=== PATIENT | male | born 1950 | race American Indian/Alaskan Native ===

== ENCOUNTER 2021-07-01 15:56 | Inpatient (IN) | payer OTHER ==
[2021-07-01] MEDS ORDERED: ACETAMINOPHEN 500 MG TAB PO ONE (17:17)
[2021-07-01] MEDS ORDERED: SODIUM CHLORIDE 0.9% 500 ML 500 ML IV ONE (17:17)
[2021-07-01 17:50] LABS: Basophils % (Auto) 0.5 % (0.0-1.8); Eosinophils # (Auto) 0.2 K/mm3 (0.0-0.4); Eosinophils % (Auto) 3.9 % (0.0-4.3); Hematocrit 23.4 % (35.5-45.6); Hemoglobin 7.4 gm/dl (11.8-15.2); Lymphocytes # (Auto) 0.3 K/mm3 (1.2-5.4); Lymphocytes % (Auto) 4.8 % (13.4-35.0); Mean Corpuscular HGB Conc 32 % (32-34); Mean Corpuscular Volume 93 fl (84-94); Monocytes # (Auto) 0.7 K/mm3 (0.0-0.8); Monocytes % (Auto) 10.5 % (0.0-7.3); Platelet Count 126 K/mm3 (140-440); Red Blood Count 2.51 M/mm3 (3.65-5.03); Red Cell Distribution Width 20.9 % (13.2-15.2)
--- NOTE | 2021-07-01 18:03 | XRay Report ---
CHEST 1 VIEW 07/01/2021 4:55 PM INDICATION / CLINICAL INFORMATION: Back Pain. COMPARISON: None available. FINDINGS: SUPPORT DEVICES: None. HEART / MEDIASTINUM: Moderate cardiomegaly. LUNGS / PLEURA: Moderate bilateral parenchymal disease with small left pleural effusion. No pneumotho rax. ADDITIONAL FINDINGS: No significant additional findings. IMPRESSION: 1. Probable bilateral pneumonia with small left pleural effusion Signer Name: Andrew Galeas MD Signed: 07/01/2021 5:59 PM Workstation Name: [id number]
--- NOTE | 2021-07-01 18:04 | XRay Report ---
LUMBAR SPINE 1 AP VIEWS INDICATION / CLINICAL INFORMATION: Back Pain. COMPARISON: None available. FINDINGS: VERTEBRAE: No fracture. No significant malalignment. DISC SPACES:No significant abnormality. FACET JOINTS:No significant abnormality. ADDITIONAL FINDINGS: Right double-J ureteral stent area and embolization coils left upper quadrant. M oderate vascular calcifications nonaneurysmal aorta. IMPRESSION: 1. No significant abnormality. Lateral x-ray not performed secondary to patient inability Signer Name: Andrew Galeas MD Signed: 07/01/2021 6:00 PM Workstation Name: [id number]
[2021-07-01 18:12] LABS: Albumin 2.7 g/dL (3.9-5); Calcium 8.6 mg/dL (8.4-10.2)
[2021-07-01] MEDS ORDERED: cefTRIAXone/NS 1 GM/50 ML 1 GM/50 ML BAG IV ONE (18:16)
--- NOTE | 2021-07-01 18:57 | Emergency Department Report ---
ED Back Pain/Injury HPI - General Chief Complaint: Back Pain/Injury Stated Complaint: BACK PAIN Time Seen by Provider: 07/01/21 17:13 Source: patient Limitations: Physical Limitation - History of Present Illness MD Complaint: back pain -: Gradual, days(s) Similar Symptoms Previously: Yes Place: home Radiation: none Severity scale (0 -10): 5 Quality: dull Consistency: constant Worsens With: none - Related Data Allergies Allergy/AdvReac Type Severity Reaction Status Date / Time No Known Allergies Allergy Unverified 07/01/21 16:20 ED Review of Systems ROS: Stated complaint: BACK PAIN Other details as noted in HPI Constitutional: denies: chills, fever Eyes: denies: eye pain, eye discharge, vision change ENT: denies: ear pain, throat pain Respiratory: denies: cough, shortness of breath, wheezing Cardiovascular: denies: chest pain, palpitations Endocrine: no symptoms reported Gastrointestinal: denies: abdominal pain, nausea, diarrhea Genitourinary: denies: urgency, dysuria Musculoskeletal: denies: back pain, joint swelling, arthralgia Skin: denies: rash, lesions Neurological: denies: headache, weakness, paresthesias Psychiatric: denies: anxiety, depression Hematological/Lymphatic: denies: easy bleeding, easy bruising ED Past Medical Hx - Past Medical History Previous Medical History?: Yes Hx CVA: Yes Hx Heart Attack/AMI: Yes Hx Congestive Heart Failure: Yes Hx Renal Disease: Yes - Surgical History Past Surgical History?: Yes Hx Coronary Stent: Yes - Social History Smoking Status: Former Smoker ED Physical Exam - General Limitations: Physical Limitation General appearance: alert, in distress, other (looks sick , disheveld ) - Head Head exam: Present: atraumatic, normocephalic - ENT ENT exam: Present: mucous membranes moist - Neck Neck exam: Present: normal inspection - Respiratory Respiratory exam: Present: normal lung sounds bilaterally, rales - Cardiovascular Cardiovascular Exam: Present: normal rhythm, bradycardia. Absent: systolic murmur, diastolic murmur, rubs, gallop - GI/Abdominal GI/Abdominal exam: Present: soft, normal bowel sounds - Rectal Rectal exam: Present: deferred - Extremities Exam Extremities exam: Present: normal inspection - Back Exam Back exam: Present: tenderness - Neurological Exam Neurological exam: Present: alert, oriented X3 - Psychiatric Psychiatric exam: Present: normal affect, normal mood - Skin Skin exam: Present: warm, dry, intact, normal color. Absent: rash ED Course Vital Signs 07/01/21 07/01/21 07/01/21 16:03 16:23 16:30 Pulse Rate 55 L 54 L Respiratory 20 12 13 Rate Blood Pressure Blood Pressure 100/64 [Right] O2 Sat by Pulse 99 Oximetry 07/01/21 16:46 Pulse Rate 54 L Respiratory 24 Rate Blood Pressure 99/57 Blood Pressure [Right] O2 Sat by Pulse 100 Oximetry ED Medical Decision Making - Lab Data Result diagrams: 07/01/21 17:25 07/01/21 17:25 Critical care attestation.: If time is entered above; I have spent that time in minutes in the direct care of this critically ill patient, excluding procedure time. ED Disposition Clinical Impression: Pneumonia, CRF (chronic renal failure), Hypotension Disposition: 09 ADMITTED INPATIENT Is pt being admited?: Yes Does the pt Need Aspirin: No Condition: Stable Instructions: Bacterial Pneumonia (ED) Referrals: PRIMARY CARE, [Primary Care Provider] - 3-5 Days
--- NOTE | 2021-07-01 21:41 | History and Physical Report ---
History of Present Illness Date of examination: 07/01/21 Date of admission: 07/01/2022 Chief complaint: Shortness of breath for 1 day History of present illness: 71-year-old with history of end-stage renal disease, congestive heart failure, coronary artery disease, CVA presents with shortness of breath and low back pain. No fever. Patient was in the emergency room. No increased temperature. Feels weak. Patient's vaccination status is not clear. 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 Patient apparently goes for dialysis to [facility] dialysis clinic and he is not sure of the name. - Past Medical History --Previous Medical History?: Yes --CVA: Yes --Heart Attack/AMI: Yes --Congestive Heart Failure: Yes --Renal Disease: Yes - Surgical History --Past Surgical History?: Yes --Coronary Stent: Yes - Social History --Smoking Status: Former Smoker -Family history -- Htn Review of Systems ROS: Stated complaint: BACK PAIN Other details as noted in HPI Constitutional: denies: chills, fever Eyes: denies: eye pain, eye discharge, vision change ENT: denies: ear pain, throat pain Respiratory: denies: cough, shortness of breath, wheezing Cardiovascular: denies: chest pain, palpitations Endocrine: no symptoms reported Gastrointestinal: denies: abdominal pain, nausea, diarrhea Genitourinary: denies: urgency, dysuria Musculoskeletal: denies: back pain, joint swelling, arthralgia Skin: denies: rash, lesions Neurological: denies: headache, weakness, paresthesias Psychiatric: denies: anxiety, depression Hematological/Lymphatic: denies: easy bleeding, easy bruising Medications and Allergies Allergies Allergy/AdvReac Type Severity Reaction Status Date / Time No Known Allergies Allergy Unverified 07/01/21 16:20 Exam - Constitutional Vitals: Temp Pulse Resp BP Pulse Ox 54 L 19 98/54 100 07/01/21 19:15 07/01/21 19:15 07/01/21 19:15 07/01/21 19:15 General appearance: Present: mild distress, well-nourished - EENT Eyes: Present: PERRL ENT: hearing intact, clear oral mucosa - Neck Neck: Present: supple, normal ROM - Respiratory Respiratory effort: normal Respiratory: bilateral: CTA - Cardiovascular Heart rate: 78 Rhythm: regular Heart Sounds: Present: S1 & S2. Absent: rub, click - Extremities Extremities: pulses symmetrical, No edema Peripheral Pulses: within normal limits - Abdominal General gastrointestinal: Present: soft, non-tender, non-distended, normal bowel sounds Male genitourinary: Present: normal - Integumentary Integumentary: Present: clear, warm, dry - Musculoskeletal Musculoskeletal: gait normal, strength equal bilaterally - Psychiatric Psychiatric: appropriate mood/affect, intact judgment & insight - Neurologic Neurologic: CNII-XII intact, moves all extremities Results - Labs CBC & Chem 7: 07/02/21 04:24 07/02/21 04:24 Labs: Laboratory Last Values WBC 6.3 K/mm3 (4.5-11.0) 07/01/21 17:25 RBC 2.51 M/mm3 (3.65-5.03) L 07/01/21 17:25 Hgb 7.4 gm/dl (11.8-15.2) L 07/01/21 17:25 Hct 23.4 % (35.5-45.6) L 07/01/21 17:25 MCV 93 fl (84-94) 07/01/21 17:25 MCH 30 pg (28-32) 07/01/21 17:25 MCHC 32 % (32-34) 07/01/21 17:25 RDW 20.9 % (13.2-15.2) H 07/01/21 17:25 Plt Count 126 K/mm3 (140-440) L 07/01/21 17:25 Lymph % (Auto) 4.8 % (13.4-35.0) L 07/01/21 17:25 [place] % (Auto) 10.5 % (0.0-7.3) H 07/01/21 17:25 Eos % (Auto) 3.9 % (0.0-4.3) 07/01/21 17:25 Baso % (Auto) 0.5 % (0.0-1.8) 07/01/21 17:25 Lymph # (Auto) 0.3 K/mm3 (1.2-5.4) L 07/01/21 17:25 [place] # (Auto) 0.7 K/mm3 (0.0-0.8) 07/01/21 17:25 Eos # (Auto) 0.2 K/mm3 (0.0-0.4) 07/01/21 17:25 Baso # (Auto) 0.0 K/mm3 (0.0-0.1) 07/01/21 17:25 Seg Neutrophils % 80.3 % (40.0-70.0) H 07/01/21 17:25 Seg Neutrophils # 5.1 K/mm3 (1.8-7.7) 07/01/21 17:25 Sodium 137 mmol/L (137-145) 07/01/21 17:25 Potassium 3.6 mmol/L (3.6-5.0) 07/01/21 17:25 Chloride 96.7 mmol/L (98-107) L 07/01/21 17:25 Carbon Dioxide 26 mmol/L (22-30) 07/01/21 17:25 Anion Gap 18 mmol/L 07/01/21 17:25 BUN 40 mg/dL (9-20) H 07/01/21 17:25 Creatinine 4.8 mg/dL (0.8-1.3) H 07/01/21 17:25 Estimated GFR 15 ml/min 07/01/21 17:25 BUN/Creatinine Ratio 8 % 07/01/21 17:25 Glucose 88 mg/dL (75-100) 07/01/21 17:25 Lactic Acid 1.40 mmol/L (0.7-2.0) 07/01/21 18:34 Calcium 8.6 mg/dL (8.4-10.2) 07/01/21 17:25 Total Bilirubin 1.10 mg/dL (0.1-1.2) 07/01/21 17:25 AST 34 units/L (5-40) 07/01/21 17:25 ALT 32 units/L (7-56) 07/01/21 17:25 Alkaline Phosphatase 106 units/L (35-129) 07/01/21 17:25 C-Reactive Protein 16.00 mg/dL (0.00-1.30) H 07/01/21 17:25 Total Protein 6.7 g/dL (6.3-8.2) 07/01/21 17:25 Albumin 2.7 g/dL (3.9-5) L 07/01/21 17:25 Albumin/Globulin Ratio 0.7 % 07/01/21 17:25 Short CBC 07/01/21 07/02/21 Range/Units 17:25 04:24 WBC 6.3 6.5 (4.5-11.0) K/mm3 Hgb 7.4 L 7.8 L (11.8-15.2) gm/dl Hct 23.4 L 25.0 L (35.5-45.6) % Plt Count 126 L 142 (140-440) K/mm3 BMP 07/01/21 07/02/21 17:25 04:24 Sodium 137 139 Potassium 3.6 4.8 D Chloride 96.7 L 98.3 Carbon Dioxide 26 18 L D BUN 40 H 43 H Creatinine 4.8 H 5.1 H Glucose 88 148 H Calcium 8.6 8.4 Liver Function 07/01/21 07/02/21 Range/Units 17:25 04:24 Total Bilirubin 1.10 1.10 (0.1-1.2) mg/dL AST 34 50 H (5-40) units/L ALT 32 32 (7-56) units/L Alkaline Phosphatase 106 123 (35-129) units/L Albumin 2.7 L 2.7 L (3.9-5) g/dL - Imaging and Cardiology Chest x-ray: report reviewed Imaging and Cardiology: Chest x-ray Probable bilateral pneumonia with small left pleural effusion Lumbar spine x-ray No significant abnormality. Lateral x-ray not performed secondary to patient's inability Assessment and Plan Advance Directives: Yes (Full code) VTE prophylaxis?: Chemical Plan of care discussed with patient/family: Yes - Patient Problems (1) SIRS (systemic inflammatory response syndrome) Current Visit: Yes Status: Acute Plan to address problem: All inflammatory markers are elevated including CRP of 16 D-dimer of 4320 LDH of 276. (2) Acute respiratory failure with hypoxia Current Visit: Yes Status: Acute Plan to address problem: Oxygen supplementation as necessary Rule out Covid (3) Bilateral pneumonia Current Visit: Yes Status: Acute Plan to address problem: Treat as community-acquired pneumonia Patient initiated on IV antibiotics in the form of azithromycin and Rocephin Also IV Decadron (4) Person under investigation for COVID-19 Current Visit: Yes Status: Acute Plan to address problem: Coronavirus PCR in a.m. (5) Hypotension Current Visit: Yes Status: Acute Qualifiers: Hypotension type: unspecified hypotension type Qualified Code(s): I95.9 - Hypotension, unspecified Plan to address problem: Patient being given about 500 cc of normal saline (6) End-stage renal disease needing dialysis Current Visit: Yes Status: Chronic Plan to address problem: Nephrology consulted Patient is a bit hypotensive (7) Malnutrition Current Visit: Yes Status: Chronic Qualifiers: Protein-calorie malnutrition severity: moderate Plan to address problem: Moderate Dietary supplements requested (8) DVT prophylaxis Current Visit: Yes Status: Acute Plan to address problem: On anticoagulation GI prophylaxis (9) Advance care planning Current Visit: Yes Status: Acute Plan to address problem: Disease education conducted, care plan discussed, diagnosis discussed, prognosis discussed. Patient is full code. Patient acknowledges understanding and a greement of the care plan. +30 minutes.
[2021-07-01] MEDS ORDERED: ONDANSETRON 4 MG/2 ML INJ IV PRN (22:07)
[2021-07-01] MEDS ORDERED: ACETAMINOPHEN 325 MG TAB PO PRN (22:07)
[2021-07-01] MEDS ORDERED: oxyCODONE /ACETAMINOPHEN 5-325MG TAB PO PRN (22:11)
[2021-07-01] MEDS ORDERED: METOCLOPRAMIDE 10 MG/2 ML INJ IV PRN (22:11)
[2021-07-01] MEDS ORDERED: SODIUM CHLORIDE 0.9% 1000 ML 1,000 ML IV SCH (22:15)
[2021-07-01] MEDS: HEPARIN 5,000 UNIT/1 ML VIAL SUB-Q SCH (22:47)
[2021-07-01] MEDS ORDERED: cefTRIAXone/NS 1 GM/50 ML 1 GM/50 ML BAG IV SCH (23:00)
[2021-07-01] MEDS ORDERED: AZITHROMYCIN/NS 500 MG/250 ML 500 MG/250 ML BAG IV SCH (23:00)
[2021-07-01] MEDS: dexAMETHasone 4 MG/ML VIAL IV SCH (23:24)
[2021-07-01] MEDS: FAMOTIDINE 10 MG TAB PO SCH (23:35)
[2021-07-02 01:47] LABS: C-Reactive Protein 16.9 mg/dL (0.00-1.30)
[2021-07-02 05:01] LABS: Hemoglobin 7.8 gm/dl (11.8-15.2); Mean Corpuscular HGB Conc 31 % (32-34); Mean Corpuscular Volume 95 fl (84-94); Platelet Count 142 K/mm3 (140-440); Red Blood Count 2.64 M/mm3 (3.65-5.03)
[2021-07-02 05:08] LABS: Red Cell Distribution Width 21.1 % (13.2-15.2)
[2021-07-02 05:22] LABS: Albumin 2.7 g/dL (3.9-5); Calcium 8.4 mg/dL (8.4-10.2)
[2021-07-02 06:18] LABS: Anisocytosis 1+; Eosinophils % (Manual) 0 % (0.0-4.3); Total Cells Counted 100
[2021-07-02 06:19] LABS: Ovalocytes 1+; Poikilocytosis 1+; Schistocytes Few
[2021-07-02 06:20] LABS: Platelet Estimate Consistent w Auto
--- NOTE | 2021-07-02 08:37 | Progress Note ---
Assessment and Plan Assessment and plan: History of present illness: History obtained from his as patient is dysp neic and drowsy and unable to provide detailed history. 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 He was ambulatory up until experiencing back pain around 2020 and was admitted to [facility] in mid April 2021 and discharged in mid May 2021. During the hospital stay, he was treated for prolonged nosebleeds and cardiac stenting in lieu of CABG which he was too weak to undergo. 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 It appears that he was treated with vancomycin q. 3 days and was discharged last week. He was to get 1 week more of vancomycin at dialysis center to complete a 6-week course. In ED, no increased temperature. Feels weak. Appears dyspneic. 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 Patient apparently goes for dialysis to [facility] dialysis clinic and he is not sure of the name. Assessment: Just discharged from [facility] after a 5-week stay preceded by hospitalization at [place] for 1 month Acute on chronic hypoxic respiratory failure History of COPD on 3 and half liters of O2 at home History of COVID-19 pneumonia early in the pandemic Bilateral diffuse opacities on chest x-ray, acute versus chronic Volume overload versus new pneumonia versus scarring from previous COVID-19 pneumonia Patient needed BiPAP at [facility] Elevated D-dimer and CRP Vaccination x2 for COVID-19 but refused booster PCR is pending Encephalopathy Acute versus acute on chronic, unclear if he has some dementia Etiology could be sepsis, hypotension, drug-induced, hypoxia etc. Hypotension, better today Could be from possible sepsis Afebrile, normal WBC and normal procalcitonin Await blood cultures COVID-19 PCR pending Permacath infection in 05/2021 Reported seeding of infection to spine and endocarditis Reportedly completed 5/6 weeks of vancomycin, treated at [facility] ESRD on hemodialysis CAD Cardiac stents in 06/01 at [place] in lieu of CABG since a poor surgical candidate Severe arthritis in the hands with gross deformities, likely RA DNR, as per However patient wants to revoke DNR status to make full code Plan: Obtain medical records from [facility] Obtain home medication list Resume vancomycin, check trough level, pharmacy to dose Titrate supplemental O2 as needed/tolerated Nebs, may need BiPAP Aspiration precautions Nephrology consult for dialysis Prognosis is guarded Discussed with his in detail Advance care planning Current Visit: Yes Status: Acute Plan to address problem: Disease education conducted, care plan discussed, diagnosis discussed, prognosis discussed. Patient acknowledges understanding and agreement of the care plan. +30 minutes. History Interval history: Patient remains afebrile, BP still soft though better, currently in mild to moderate respiratory distress off his Ventimask, somewhat drowsy but verbal and answers simple questions. Hospitalist Physical - Constitutional Vitals: Temp Pulse Resp BP Pulse Ox 98.9 F 78 18 90/47 96 07/02/21 08:00 07/02/21 08:00 07/02/21 03:38 07/02/21 08:00 07/02/21 08:00 General appearance: Present: mild distress, disheveled - EENT Eyes: Present: PERRL - Neck Neck: Present: supple - Respiratory Respiratory effort: labored Respiratory: bilateral: diminished, rales - Cardiovascular Rhythm: regular - Extremities Extremities: No edema Extremity abnormal: other (Severe chronic deformities in hands/fingers likely RA) - Abdominal General gastrointestinal: soft, non-tender, non-distended, normal bowel sounds - Integumentary Integumentary: Absent: rash - Neurologic Neurologic: moves all extremities, other (Drowsy, verbal) Results - Labs CBC & Chem 7: 07/02/21 04:24 07/02/21 04:24 Labs: Laboratory Last Values WBC 6.5 K/mm3 (4.5-11.0) 07/02/21 04:24 RBC 2.64 M/mm3 (3.65-5.03) L 07/02/21 04:24 Hgb 7.8 gm/dl (11.8-15.2) L 07/02/21 04:24 Hct 25.0 % (35.5-45.6) L 07/02/21 04:24 MCV 95 fl (84-94) H 07/02/21 04:24 MCH 30 pg (28-32) 07/02/21 04:24 MCHC 31 % (32-34) L 07/02/21 04:24 RDW 21.1 % (13.2-15.2) H 07/02/21 04:24 Plt Count 142 K/mm3 (140-440) 07/02/21 04:24 Lymph % (Auto) 4.8 % (13.4-35.0) L 07/01/21 17:25 [place] % (Auto) 10.5 % (0.0-7.3) H 07/01/21 17:25 Eos % (Auto) 3.9 % (0.0-4.3) 07/01/21 17:25 Baso % (Auto) 0.5 % (0.0-1.8) 07/01/21 17:25 Lymph # (Auto) 0.3 K/mm3 (1.2-5.4) L 07/01/21 17:25 [place] # (Auto) 0.7 K/mm3 (0.0-0.8) 07/01/21 17:25 Eos # (Auto) 0.2 K/mm3 (0.0-0.4) 07/01/21 17:25 Baso # (Auto) 0.0 K/mm3 (0.0-0.1) 07/01/21 17:25 Add Manual Diff Complete 07/02/21 04:24 Total Counted 100 07/02/21 04:24 Seg Neutrophils % Building Operator 07/02/21 04:24 Seg Neuts % (Manual) 94.0 % (40.0-70.0) H 07/02/21 04:24 Band Neutrophils % 0 % 07/02/21 04:24 Lymphocytes % (Manual) 3.0 % (13.4-35.0) L 07/02/21 04:24 Reactive Lymphs % (Man) 0 % 07/02/21 04:24 Monocytes % (Manual) 2.0 % (0.0-7.3) 07/02/21 04:24 Eosinophils % (Manual) 0 % (0.0-4.3) 07/02/21 04:24 Basophils % (Manual) 1.0 % (0.0-1.8) 07/02/21 04:24 Metamyelocytes % 0 % 07/02/21 04:24 Myelocytes % 0 % 07/02/21 04:24 Promyelocytes % 0 % 07/02/21 04:24 Blast Cells % 0 % 07/02/21 04:24 Nucleated RBC % Not Reportable 07/02/21 04:24 Seg Neutrophils # 5.1 K/mm3 (1.8-7.7) 07/01/21 17:25 Seg Neutrophils # Man 6.1 K/mm3 (1.8-7.7) 07/02/21 04:24 Band Neutrophils # 0.0 K/mm3 07/02/21 04:24 Lymphocytes # (Manual) 0.2 K/mm3 (1.2-5.4) L 07/02/21 04:24 Abs React Lymphs (Man) 0.0 K/mm3 07/02/21 04:24 Monocytes # (Manual) 0.1 K/mm3 (0.0-0.8) 07/02/21 04:24 Eosinophils # (Manual) 0.0 K/mm3 (0.0-0.4) 07/02/21 04:24 Basophils # (Manual) 0.1 K/mm3 (0.0-0.1) 07/02/21 04:24 Metamyelocytes # 0.0 K/mm3 07/02/21 04:24 Myelocytes # 0.0 K/mm3 07/02/21 04:24 Promyelocytes # 0.0 K/mm3 07/02/21 04:24 Blast Cells # 0.0 K/mm3 07/02/21 04:24 WBC Morphology Not Reportable 07/02/21 04:24 Hypersegmented Neuts Not Reportable 07/02/21 04:24 Hyposegmented Neuts Not Reportable 07/02/21 04:24 Hypogranular Neuts Not Reportable 07/02/21 04:24 Smudge Cells Not Reportable 07/02/21 04:24 Toxic Granulation Not Reportable 07/02/21 04:24 Toxic Vacuolation Not Reportable 07/02/21 04:24 Dohle Bodies Not Reportable 07/02/21 04:24 Pelger-Huet Anomaly Not Reportable 07/02/21 04:24 Trevor Rods Not Reportable 07/02/21 04:24 Platelet Estimate Consistent w auto 07/02/21 04:24 Clumped Platelets Not Reportable 07/02/21 04:24 Plt Clumps, EDTA Not Reportable 07/02/21 04:24 Large Platelets Not Reportable 07/02/21 04:24 Giant Platelets Not Reportable 07/02/21 04:24 Platelet Satelliting Not Reportable 07/02/21 04:24 Plt Morphology Comment Not Reportable 07/02/21 04:24 RBC Morphology Not Reportable 07/02/21 04:24 Dimorphic RBCs Not Reportable 07/02/21 04:24 Polychromasia Not Reportable 07/02/21 04:24 Hypochromasia Not Reportable 07/02/21 04:24 Poikilocytosis 1+ 07/02/21 04:24 Anisocytosis 1+ 07/02/21 04:24 Microcytosis Not Reportable 07/02/21 04:24 Macrocytosis Not Reportable 07/02/21 04:24 Spherocytes Not Reportable 07/02/21 04:24 Pappenheimer Bodies Not Reportable 07/02/21 04:24 Sickle Cells Not Reportable 07/02/21 04:24 Target Cells Not Reportable 07/02/21 04:24 Tear Drop Cells Not Reportable 07/02/21 04:24 Ovalocytes 1+ 07/02/21 04:24 Helmet Cells Not Reportable 07/02/21 04:24 Garcia-Ringo Bodies Not Reportable 07/02/21 04:24 [place] Rings Not Reportable 07/02/21 04:24 Fannin Cells Not Reportable 07/02/21 04:24 Bite Cells Not Reportable 07/02/21 04:24 Crenated Cell Not Reportable 07/02/21 04:24 Elliptocytes Rare 07/02/21 04:24 Acanthocytes (Spur) Not Reportable 07/02/21 04:24 Rouleaux Not Reportable 07/02/21 04:24 Hemoglobin C Crystals Not Reportable 07/02/21 04:24 Schistocytes Few 07/02/21 04:24 Malaria parasites Not Reportable 07/02/21 04:24 Romain Bodies Not Reportable 07/02/21 04:24 Hem Pathologist Commnt No 07/02/21 04:24 D-Dimer 4320.70 ng/mlDDU (0-234) H 07/01/21 22:52 Sodium 139 mmol/L (137-145) 07/02/21 04:24 Potassium 4.8 mmol/L (3.6-5.0) D 07/02/21 04:24 Chloride 98.3 mmol/L (98-107) 07/02/21 04:24 Carbon Dioxide 18 mmol/L (22-30) L D 07/02/21 04:24 Anion Gap 28 mmol/L 07/02/21 04:24 BUN 43 mg/dL (9-20) H 07/02/21 04:24 Creatinine 5.1 mg/dL (0.8-1.3) H 07/02/21 04:24 Estimated GFR 14 ml/min 07/02/21 04:24 BUN/Creatinine Ratio 8 % 07/02/21 04:24 Glucose 148 mg/dL (75-100) H 07/02/21 04:24 POC Glucose 137 mg/dL (70-105) H 07/02/21 02:24 Lactic Acid 1.40 mmol/L (0.7-2.0) 07/01/21 18:34 Calcium 8.4 mg/dL (8.4-10.2) 07/02/21 04:24 Total Bilirubin 1.10 mg/dL (0.1-1.2) 07/02/21 04:24 AST 50 units/L (5-40) H 07/02/21 04:24 ALT 32 units/L (7-56) 07/02/21 04:24 Alkaline Phosphatase 123 units/L (35-129) 07/02/21 04:24 Lactate Dehydrogenase 276 units/L (91-180) H 07/01/21 22:52 C-Reactive Protein 16.90 mg/dL (0.00-1.30) H 07/01/21 22:52 Total Protein 6.7 g/dL (6.3-8.2) 07/02/21 04:24 Albumin 2.7 g/dL (3.9-5) L 07/02/21 04:24 Albumin/Globulin Ratio 0.7 % 07/02/21 04:24 Microbiology: Microbiology 07/01/21 19:35 Peripheral/Venous Blood Culture - Preliminary Culture in Progress 07/01/21 19:35 Peripheral/Venous Blood Culture - Preliminary Culture in Progress Active Medications - Current Medications Current Medications: Generic Name Dose Route Start Last Admin Trade Name Freq PRN Reason Stop Dose Admin Acetaminophen 650 mg 07/01/21 22:07 Acetaminophen 325 Mg Tab PO Q4H PRN Pain MILD(1-3)/Fever >100.5/HUGHES Azithromycin 500 mg 07/02/21 22:00 Azithromycin 250 Mg Tab PO 07/05/21 22:01 Q24H [facility] Protocol Dexamethasone 8 mg 07/01/21 23:00 07/01/21 23:24 Dexamethasone 4 Mg/Ml Vial IV 8 mg Q24HR PIOTR Administration Famotidine 10 mg 07/01/21 23:00 07/01/21 23:35 Famotidine 10 Mg Tab PO 10 mg BID PIOTR Administration Heparin Sodium (Porcine) 5,000 unit 07/01/21 22:15 07/01/21 22:47 Heparin 5,000 Unit/1 Ml Vial SUB-Q 5,000 unit Q12HR PIOTR Administration Ceftriaxone Sodium 2 gm in 100 mls @ 200 mls/hr 07/02/21 10:00 Rocephin/Ns 2 Gm/100 Ml IV Q24HR [facility] Protocol Metoclopramide HCl 5 mg 07/01/21 22:11 Metoclopramide 10 Mg/2 Ml Inj IV Q6H PRN Nausea And Vomiting Ondansetron HCl 4 mg 07/01/21 22:07 Ondansetron 4 Mg/2 Ml Inj IV Q8H PRN Nausea And Vomiting Oxycodone/Acetaminophen 1 tab 07/01/21 22:11 Oxycodone /Acetaminophen 5-325mg Tab PO Q6H PRN Pain, Moderate (4-6) Sodium Chloride 10 ml 07/02/21 10:00 Sodium Chloride 0.9% 10 Ml Flush Syringe IV BID PIOTR Sodium Chloride 10 ml 07/01/21 22:07 Sodium Chloride 0.9% 10 Ml Flush Syringe IV PRN PRN LINE FLUSH
--- NOTE | 2021-07-02 08:47 | Consultation ---
History of Present Illness - Reason for Consult Consult date: 07/02/21 end stage renal disease - History of Present Illness patient is a 71 year old male with ESRD on HD was [id number] for worsening shortness of breath and back pain. CXR showed pleural effusion and possible PNA. 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 Renal consult was requested for HD management while inpatient Past History Past Medical History: anemia, ESRD, hypertension Medications and Allergies Allergies Allergy/AdvReac Type Severity Reaction Status Date / Time No Known Allergies Allergy Unverified 07/01/21 16:20 Active Meds: Active Medications Acetaminophen (Acetaminophen 325 Mg Tab) 650 mg PO Q4H PRN PRN Reason: Pain MILD(1-3)/Fever >100.5/HUGHES Azithromycin (Azithromycin 250 Mg Tab) 500 mg PO Q24H PIOTR; Protocol Stop: 07/05/21 22:01 Dexamethasone (Dexamethasone 4 Mg/Ml Vial) 8 mg IV Q24HR PIOTR Last Admin: 07/01/21 23:24 Dose: 8 mg Epoetin Lucas-epbx (Epoetin Lucas-Epbx 10,000 Unit/1 Ml Vial) 10,000 unit SUB-Q JERSON PRN PRN Reason: with HD Famotidine (Famotidine 10 Mg Tab) 10 mg PO BID [facility] Last Admin: 07/01/21 23:35 Dose: 10 mg Heparin Sodium (Porcine) (Heparin 5,000 Unit/1 Ml Vial) 5,000 unit SUB-Q Q12HR PIOTR Last Admin: 07/01/21 22:47 Dose: 5,000 unit Ceftriaxone Sodium (Rocephin/Ns 2 Gm/100 Ml) 2 gm in 100 mls @ 200 mls/hr IV Q24HR [facility]; Protocol Metoclopramide HCl (Metoclopramide 10 Mg/2 Ml Inj) 5 mg IV Q6H PRN PRN Reason: Nausea And Vomiting Ondansetron HCl (Ondansetron 4 Mg/2 Ml Inj) 4 mg IV Q8H PRN PRN Reason: Nausea And Vomiting Oxycodone/Acetaminophen (Oxycodone /Acetaminophen 5-325mg Tab) 1 tab PO Q6H PRN PRN Reason: Pain, Moderate (4-6) Sodium Chloride (Sodium Chloride 0.9% 10 Ml Flush Syringe) 10 ml IV BID [facility] Sodium Chloride (Sodium Chloride 0.9% 10 Ml Flush Syringe) 10 ml IV PRN PRN PRN Reason: LINE FLUSH Review of Systems All systems: negative (SOB) Exam - Vital Signs Vital signs: Vital Signs Pulse Resp BP Pulse Ox 55 L 20 100/64 99 07/01/21 16:03 07/01/21 16:03 07/01/21 16:03 07/01/21 16:03 Results - Lab Results 07/02/21 04:24 07/02/21 04:24 Most recent lab results Calcium 8.4 mg/dL (8.4-10.2) 07/02/21 04:24 Assessment and Plan (1) SIRS (systemic inflammatory response syndrome) (2) Acute respiratory failure with hypoxia (3) Bilateral pneumonia (4) Person under investigation for COVID-19 (5) Hypotension (6) End-stage renal disease needing dialysis (7) Malnutrition Patient is agreeable with HD while inpatient HD today for clearance volume removal DAMIEN with HD will assess dialysis needs daily renally dose meds strict I&O Daily weight
[2021-07-02] MEDS ORDERED: EPOETIN ALFA-EPBX 10,000 UNIT/1 ML VIAL SUB-Q PRN (09:00)
[2021-07-02] MEDS: cefTRIAXone/NS 2 GM/100 ML 2 GM/100 ML BAG IV SCH (09:16)
[2021-07-02] MEDS: FAMOTIDINE 10 MG TAB PO SCH ×2 (09:16→21:00)
--- NOTE | 2021-07-02 10:20 | Electrocardiograph Report ---
[facility] Test Date: 2021-07-01 Test Time: 16:23:32 Pat Name: EDGARD SAMS Department: Room: A457 1 Gender: M Utilization Management Rn: RENATO : 1950 Requested By: SAURABH SANDOVAL Order Number: [id number] Reading MD: Robe Reyna Measurements Intervals [place] Rate: 54 P: 54 ME: 205 QRS: -59 QRSD: 187 T: 124 QT: 516 QTc: 491 Interpretive Statements Sinus bradycardia RBBB and LAFB Abnormal T, consider ischemia, lateral leads No previous ECG available for comparison Electronically Signed On 07-02-2021 10:20:17 EST by Robe Reyna
[2021-07-02] MEDS ORDERED: POLYETHYLENE GLYCOL 3350 17 GM POWDER PO PRN (11:00)
[2021-07-02] MEDS: HEPARIN 5,000 UNIT/1 ML VIAL SUB-Q SCH ×2 (11:08→20:59)
[2021-07-02] MEDS: dexAMETHasone 4 MG/ML VIAL IV SCH (12:04)
[2021-07-02 14:23] LABS: Hepatitis B Surface Antigen Non-Reactive (Negative); Hepatitis C Virus Antibody Reactive (NonReactive)
[2021-07-02] MEDS ORDERED: AZITHROMYCIN 250 MG TAB PO SCH (22:00)
[2021-07-03] MEDS ORDERED: SODIUM CHLORIDE 0.9% 250ML 250 ML IV ONE (01:53)
[2021-07-03 03:01] LABS: Chol/HDL Ratio 2.44 %
[2021-07-03] MEDS ORDERED: HALOPERIDOL LACTATE 5 MG/1 ML INJ IM NR (08:22)
[2021-07-03] MEDS ORDERED: ASPIRIN 325 MG TAB PO SCH (10:00)
[2021-07-03] MEDS: dexAMETHasone 4 MG/ML VIAL IV SCH (11:01)
[2021-07-03] MEDS: HEPARIN 5,000 UNIT/1 ML VIAL SUB-Q SCH (11:01)
[2021-07-03] MEDS: cefTRIAXone/NS 2 GM/100 ML 2 GM/100 ML BAG IV SCH (11:02)
[2021-07-03] MEDS: FAMOTIDINE 10 MG TAB PO SCH (11:02)
[2021-07-03 11:03] VITALS: BP 89/55
--- NOTE | 2021-07-03 11:48 | Electrocardiograph Report ---
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 Electronically Signed On 07-03-2021 10:51:45 EST by Robe Reyna
--- NOTE | 2021-07-03 12:00 | Progress Note ---
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 Zain Gamez at [facility] Plan of care reviewed by Dr. Sena Subjective Date of service: 07/03/21 Principal diagnosis: ESRD Interval history: Patient seen lying in bed. at bedside. Patient is confused and thinks he was not dialyzed yesterday. and records shows he received hemodialysis yesterday. states patient has been confused since he had stroke 2 months ago and was hospitalized at [place] for 2 months as a result of the stroke. Objective - Vital Signs Vital signs: Vital Signs - 12hr 07/03/21 07/03/21 07/03/21 01:00 02:53 03:46 Temperature 96.9 F L Pulse Rate 51 L 99 H Pulse Rate [ 51 L Radial] Respiratory 16 Rate Blood Pressure 89/52 O2 Sat by Pulse 99 80 L Oximetry 07/03/21 07/03/21 07/03/21 03:48 08:19 09:47 Temperature Pulse Rate 98 H 52 L Pulse Rate [ Radial] Respiratory 18 Rate Blood Pressure 89/55 O2 Sat by Pulse 93 96 100 Oximetry 07/03/21 11:03 Temperature 97.1 F L Pulse Rate 79 Pulse Rate [ Radial] Respiratory Rate Blood Pressure O2 Sat by Pulse Oximetry - General Appearance General appearance: cachectic, chronically ill, fatigue, frail, other (confused) EENT: ATNC, PERRL Neck: no JVD, supple Respiratory: Present: Decreased Breath Sounds Cardiology: S1S2 Gastrointestinal: normoactive bowel sounds Integumentary: warm and dry, other Neurologic: other (Awake but confused, yells out loudly) Musculoskeletal: other (No edema. Has left AVF.) Psychiatric: agitated - Lab 07/02/21 04:24 07/02/21 04:24 Most recent lab results Calcium 8.4 mg/dL (8.4-10.2) 07/02/21 04:24 Medications & Allergies - Medications Allergies/Adverse Reactions: Allergies No Known Allergies Allergy (Unverified 07/01/21 16:20) Active Medications: Generic Name Dose Route Start Last Admin Trade Name Freq PRN Reason Stop Dose Admin Acetaminophen 650 mg 07/01/21 22:07 Acetaminophen 325 Mg Tab PO Q4H PRN Pain MILD(1-3)/Fever >100.5/HUGHES Aspirin 325 mg 07/03/21 10:00 07/03/21 11:01 Aspirin 325 Mg Tab PO 325 mg QDAY PIOT[facility] Administration Atorvastatin Calcium 40 mg 07/03/21 22:00 Atorvastatin 40 Mg Tab PO QHS PIOTR Azithromycin 500 mg 07/02/21 22:00 07/02/21 21:00 Azithromycin 250 Mg Tab PO 07/05/21 22:01 500 mg Q24H PIOTR Administration Protocol Dexamethasone 8 mg 07/01/21 23:00 07/03/21 11:01 Dexamethasone 4 Mg/Ml Vial IV 8 mg Q24HR PIOTR Administration Epoetin Lucas-epbx 10,000 unit 07/02/21 09:00 07/02/21 18:18 Epoetin Lucas-Epbx 10,000 Unit/1 Ml Vial SUB-Q 10,000 unit JERSON PRN Administration with HD Famotidine 10 mg 07/01/21 23:00 07/03/21 11:02 Famotidine 10 Mg Tab PO 10 mg BID [facility]OT[facility] Administration Heparin Sodium (Porcine) 5,000 unit 07/01/21 22:15 07/03/21 11:01 Heparin 5,000 Unit/1 Ml Vial SUB-Q 5,000 unit Q12HR PIOT[facility] Administration Ceftriaxone Sodium 2 gm in 100 mls @ 200 mls/hr 07/02/21 10:00 07/03/21 11:02 Rocephin/Ns 2 Gm/100 Ml IV 07/05/21 10:29 200 mls/hr Q24HR PIOTR Administration Protocol Metoclopramide HCl 5 mg 07/01/21 22:11 Metoclopramide 10 Mg/2 Ml Inj IV Q6H PRN Nausea And Vomiting Ondansetron HCl 4 mg 07/01/21 22:07 Ondansetron 4 Mg/2 Ml Inj IV Q8H PRN Nausea And Vomiting Oxycodone/Acetaminophen 1 tab 07/01/21 22:11 07/02/21 20:58 Oxycodone /Acetaminophen 5-325mg Tab PO 1 tab Q6H PRN Administration Pain, Moderate (4-6) Polyethylene Glycol 17 gm 07/02/21 11:00 Polyethylene Glycol 3350 17 Gm Powder PO QDAY PRN Constipation Sodium Chloride 10 ml 07/02/21 10:00 07/03/21 11:02 Sodium Chloride 0.9% 10 Ml Flush Syringe IV 10 ml BID [facility]OT[facility] Administration Sodium Chloride 10 ml 07/01/21 22:07 Sodium Chloride 0.9% 10 Ml Flush Syringe IV PRN PRN LINE FLUSH
[2021-07-03] MEDS ORDERED: CLOPIDOGREL 75 MG TAB PO SCH (16:00)
--- NOTE | 2021-07-03 16:15 | Consultation ---
History of Present Illness Consult date: 07/03/21 Requesting physician: SANTA HERNANDEZ Consult reason: congestive heart failure, elevated troponin, other (Recent cardiac stent) History of present illness: Patient is 71-year-old male with a past medical history of end-stage renal disease, HFpEF, coronary artery disease s/p stents x2 in April 2021, history of CVA, mitral regurgitation, severe tricuspid regurgitation, aortic stenosis, COPD, anemia, osteomyelitis who is brought to the ED for complaint of shortness of breath and low back pain. Patient is unable to provide history due to mental status history taken from documentation and some from who was at bedside Patient has extensive history and was recently seen in the MI from April into early May found to have heart disease and received 2 stents. Patient was told he had 2 spinal fractures however left the MI AMA. Patient was then admitted to [facility] on 05/30/2021- 06/14/2021. Patient was admitted to [facility] on 05/30/2021- 06/14/2021 for worsening complaints of low back pain patient was discharged and readmitted on 06/16/2021 to 06/26/2021. During the admission patient was found to have osteomyelitis, spinal fractures, and bacteremia. Per conversation with at the MI patient was supposed to have CABG however was determined to be unstable and unlikely to survive procedure. Instead patient received 2 stents to unknown arteries. states that at [facility] patient received antibiotics for several weeks due to infections. In ED patient was found to have elevated troponin, elevated BNP, and anemic. CXR showed bilateral pneumonia. Per conversation with staff patient has been hypotensive and bradycardic. Patient is previously unknown to our practice. Cardiology is consulted for CHF, elevated troponin, history of cardiac stents. Past History Past Medical History: anemia, ESRD, hypertension Medications and Allergies Allergies Allergy/AdvReac Type Severity Reaction Status Date / Time No Known Allergies Allergy Unverified 07/01/21 16:20 Active Meds: Active Medications Acetaminophen (Acetaminophen 325 Mg Tab) 650 mg PO Q4H PRN PRN Reason: Pain MILD(1-3)/Fever >100.5/HUGHES Aspirin (Aspirin 81 Mg Tab Chew) 81 mg PO QDAY PIOT[facility] Atorvastatin Calcium (Atorvastatin 40 Mg Tab) 40 mg PO QHS PIOT[facility] Azithromycin (Azithromycin 250 Mg Tab) 500 mg PO Q24H [facility]OT[facility]; Protocol Stop: 07/05/21 22:01 Last Admin: 07/02/21 21:00 Dose: 500 mg Clopidogrel Bisulfate (Clopidogrel 75 Mg Tab) 75 mg PO QDAY [facility] Dexamethasone (Dexamethasone 4 Mg/Ml Vial) 8 mg IV Q24HR [facility] Last Admin: 07/03/21 11:01 Dose: 8 mg Epoetin Lucas-epbx (Epoetin Lucas-Epbx 10,000 Unit/1 Ml Vial) 10,000 unit SUB-Q JERSON PRN PRN Reason: with HD Last Admin: 07/02/21 18:18 Dose: 10,000 unit Famotidine (Famotidine 10 Mg Tab) 10 mg PO BID [facility] Last Admin: 07/03/21 11:02 Dose: 10 mg Heparin Sodium (Porcine) (Heparin 5,000 Unit/1 Ml Vial) 5,000 unit SUB-Q Q12HR [facility] Last Admin: 07/03/21 11:01 Dose: 5,000 unit Ceftriaxone Sodium (Rocephin/Ns 2 Gm/100 Ml) 2 gm in 100 mls @ 200 mls/hr IV Q24HR [facility]; Protocol Stop: 07/05/21 10:29 Last Admin: 07/03/21 11:02 Dose: 200 mls/hr Metoclopramide HCl (Metoclopramide 10 Mg/2 Ml Inj) 5 mg IV Q6H PRN PRN Reason: Nausea And Vomiting Ondansetron HCl (Ondansetron 4 Mg/2 Ml Inj) 4 mg IV Q8H PRN PRN Reason: Nausea And Vomiting Oxycodone/Acetaminophen (Oxycodone /Acetaminophen 5-325mg Tab) 1 tab PO Q6H PRN PRN Reason: Pain, Moderate (4-6) Last Admin: 07/02/21 20:58 Dose: 1 tab Polyethylene Glycol (Polyethylene Glycol 3350 17 Gm Powder) 17 gm PO QDAY PRN PRN Reason: Constipation Sodium Chloride (Sodium Chloride 0.9% 10 Ml Flush Syringe) 10 ml IV BID [facility] Last Admin: 07/03/21 11:02 Dose: 10 ml Sodium Chloride (Sodium Chloride 0.9% 10 Ml Flush Syringe) 10 ml IV PRN PRN PRN Reason: LINE FLUSH Review of Systems ROS unobtainable: due to mental status Physical Examination Vital Signs Pulse Resp BP Pulse Ox 55 L 20 100/64 99 02/21/22 16:03 07/01/21 16:03 07/01/21 16:03 07/01/21 16:03 General appearance: other (Altered mental state) HEENT: Positive: Normocephaly Neck: Positive: trachea midline Cardiac: Positive: Regular Rhythm, Bradycardia Lungs: Positive: Normal Breath Sounds Neuro: Positive: Grossly Intact Abdomen: Positive: Soft Skin: Negative: Rash, Suspicious Lesions, Ulceration Extremities: Present: upper extr. pulses. Absent: edema Results 07/02/21 04:24 07/02/21 04:24 Lipids 07/02/21 Range/Units 23:01 Triglycerides 52 (2-149) mg/dL Cholesterol 71 (50-199) mg/dL HDL Cholesterol 29 L (40-59) mg/dL Cholesterol/HDL Ratio 2.44 % - Imaging and Cardiology Echo: pending, report reviewed EKG interpretations - Telemetry EKG Rhythm: Sinus Bradycardia - EKG Sinus rhythms and dysrhythmias: sinus rhythm AV and intraventricular conduction: right bundle branch block, left anterior fascicular Assessment and Plan Patient is 71-year-old male with a past medical history of end-stage renal disease, HFpEF, coronary artery disease s/p stents x2 in April 2021, history of CVA, mitral regurgitation, severe tricuspid regurgitation, aortic stenosis, COPD, anemia, osteomyelitis who is brought to the ED for complaint of shortness of breath and low back pain end-stage renal disease nephrology follow HFpEF, Bilateral pneumonia NSTEMI coronary artery disease s/p stents x2 in April 2021, history of CVA, mitral regurgitation, severe tricuspid regurgitation, aortic stenosis COPD Anemia osteomyelitis History of bacteremia ID following Echo 06/02/2021-LVEF 50 - 55%. LV systolic function is normal. LV size is severely enlarged. Eccentric hypertrophy. LV wall motion normal. RV moderately dilated. RV systolic function is moderately reduced. LA severely dilated. Estimated PA systolic pressure is 67 mmHg assuming a mean RAP of 15 mmHg. Mild thickening and calcification of mitral leaflets and subvalvular apparatus. Mo derate circumferential mitral annular calcification. Restriction of posterior mitral leaflet. Severe predominantly functional mitral regurgitation. Tricuspid annulus is dilated. Severe functional tricuspid regurgitation. Moderate aortic valve calcification. Moderate aortic regurgitation. Mild aortic stenosis. Plan: Anemia, EKG shows sinus bradycardia rate 51 borderline prolonged IL interval, RBBB and LAFB. No acute ischemic changes. Troponins noted to be elevated Records review from [place] no significant change to EKG from previous admission to [place] Patient denies chest pain. Troponin elevation noted in setting of end-stage renal disease, pneumonia, and recent cardiac intervention and patient requires CABG BNP noted to be elevated. Patient appears euvolemic on exam. Patient may require fluid bolus for hypotension however will defer volume management to nephrology due to end-stage renal disease Echo pending Resume DAPT therapy with aspirin and Plavix. Upon discharge from [place] patient statin therapy was stopped we will hold statins No beta-mikaela, EROS or ARB due to hypotension No beta-mikaela due to bradycardia Patient seen in conjunction with Dr. Reyna who agrees with this plan of care - Patient Problems (1) NSTEMI (non-ST elevated myocardial infarction) Current Visit: Yes Status: Acute (2) End stage renal disease Current Visit: Yes Status: Acute (3) Coronary artery disease Current Visit: Yes Status: Acute (4) Acute respiratory failure with hypoxia Current Visit: Yes Status: Acute (5) Bilateral pneumonia Current Visit: Yes Status: Acute (6) Hypotension Current Visit: Yes Status: Acute Qualifiers: Hypotension type: unspecified hypotension type Qualified Code(s): I95.9 - Hypotension, unspecified (7) End-stage renal disease needing dialysis Current Visit: Yes Status: Chronic
--- NOTE | 2021-07-03 21:48 | Discharge Summary ---
Providers - Providers Date of Admission: 07/02/21 14:00 Attending physician: YENNI HERNANDEZ MD 07/01/21 22:11 Consult to Physician [CONS] Routine Comment: Consulting Provider: NAYELY BAUMANN Physician Instructions: Reason For Exam: ESRD needing hemodialysis 07/03/21 12:54 Consult to Physician [CONS] Routine Comment: Consulting Provider: SILVINA ARNOLD Physician Instructions: Reason For Exam: Elevated troponin, CAD, stents 04/3007/03/21 14:05 Consult to Physician [CONS] Routine Comment: Consulting Provider: SHELLEY RIOS Physician Instructions: Reason For Exam: Recent staph bacteremia, atypical pneumonia Primary care physician: SAVANNA ROJO MD Hospitalization Condition: Serious Disposition: 07 LEFT AGAINST MEDICAL ADVICE Exam - Constitutional Vitals: Temp Pulse Resp BP Pulse Ox 97.1 F L 54 L 22 89/55 95 07/03/21 11:03 07/03/21 12:20 07/03/21 12:20 07/03/21 09:47 07/03/21 12:20 Plan Follow up with: SAVANNA ROJO MD [Primary Care Provider] - 3-5 Days Forms: AMA Form
[2021-07-04] MEDS ORDERED: ASPIRIN 81 MG TAB CHEW PO SCH (10:00)
== END 2021-07-03 16:37 | disposition left against medical advice (07) | DRG 280 ==
LOC: ED 15:56 → 4A 22:07 → OBSVTOIN 07-02 14:00
PROVIDERS: ADMIT Internal Medicine; ATTEND Internal Medicine
PROC: 5A1D70Z Performance of Urinary Filtration, Intermittent, Less than 6 Hours Per Day (ICD-10-PCS; principal; 2021-07-02)
DX: I21.4 Non-ST elevation (NSTEMI) myocardial infarction (principal); J18.9 Pneumonia, unspecified organism; N18.6 End stage renal disease; J96.21 Acute and chronic respiratory failure with hypoxia; R65.10 Systemic inflammatory response syndrome (SIRS) of non-infectious origin without acute organ dysfunction; E44.0 Moderate protein-calorie malnutrition; Z68.1 Body mass index [BMI] 19.9 or less, adult; G93.40 Encephalopathy, unspecified; J44.0 Chronic obstructive pulmonary disease with (acute) lower respiratory infection; I13.2 Hypertensive heart and chronic kidney disease with heart failure and with stage 5 chronic kidney disease, or end stage renal disease; I95.9 Hypotension, unspecified; E87.70 Fluid overload, unspecified; Z20.822 Contact with and (suspected) exposure to COVID-19; I50.9 Heart failure, unspecified; I25.10 Atherosclerotic heart disease of native coronary artery without angina pectoris; Z66 Do not resuscitate; M19.90 Unspecified osteoarthritis, unspecified site; I07.1 Rheumatic tricuspid insufficiency; D64.9 Anemia, unspecified; Z86.73 Personal history of transient ischemic attack (TIA), and cerebral infarction without residual deficits; Z87.891 Personal history of nicotine dependence; Z82.49 Family history of ischemic heart disease and other diseases of the circulatory system; Z53.29 Procedure and treatment not carried out because of patient's decision for other reasons
CPT/HCPCS: 36415; 71045; 72020; 80053; 80061; 80074; 80202; 82140; 82962; 83615; 83880; 84145; 84484; 85007; 85025; 85379; 86140; 87040; 93005; 93010; 94760; G0378; Q0162; J0456; J0696; J0885; J1100; J1630; J1644; J7030; J7040; U0003